=== PATIENT | male | born 1960 | race African-American/Black ===

== ENCOUNTER 2017-02-15 16:31 | Emergency (ER) | payer MEDICAID ==
[~2017-02-15] VITALS: Ht 182.9 cm; Wt 92.0 kg
[~2017-02-15 16:31] MED LIST: GLIPIZIDE; LANTUS; LIPITOR; PREVACID; VICODIN
[2017-02-15] MEDS ORDERED: LISI-604 PO (16:54)
[2017-02-15] MEDS ORDERED: HYDR25TA PO (16:55)
[2017-02-15] MEDS ORDERED: GABA-531 PO (16:55)
[2017-02-15] MEDS ORDERED: LIDOCAINE HCL 1% 20ML VIAL (Pyxis) INJ INFIL ONE (18:00)
[2017-02-15] MEDS ORDERED: TETANUS, DIPHTHERIA, PERTUSSIS VAC/PF 0.5ML (>7YR OLD) IM ONE (18:00)
[2017-02-15 20:14] VITALS: BP 152/71
== END 2017-02-15 20:16 | disposition home or self-care (01) ==
LOC: ER 16:35
DX: S61.011A Laceration without foreign body of right thumb without damage to nail, initial encounter (principal); I10 Essential (primary) hypertension; E11.9 Type 2 diabetes mellitus without complications; E78.00 Pure hypercholesterolemia, unspecified; Z79.4 Long term (current) use of insulin; F17.200 Nicotine dependence, unspecified, uncomplicated; W45.8XXA Other foreign body or object entering through skin, initial encounter; Y93.89 Activity, other specified; Y99.8 Other external cause status; Y92.89 Other specified places as the place of occurrence of the external cause
CPT/HCPCS: 12001; 73130; 90471; 90715; 99284; J3490; X7700; Z7610